=== PATIENT | female | born 2000 | race Two or more races ===

== ENCOUNTER 2023-04-25 16:01 | Emergency (ER) | payer MEDICAID ==
[2023-04-25 17:36] LABS: APPEARANCE,URINE TURBID (CLEAR); BILIRUBIN,URINE NEGATIVE (NEGATIVE); COLOR,URINE YELLOW (YELLOW); GLUCOSE,URINE NEGATIVE (NEGATIVE); KETONES,URINE NEGATIVE (NEGATIVE); LEUKOCYTE ESTERASE,URINE MODERATE (NEGATIVE); NITRITE,URINE POSITIVE (NEGATIVE); OCCULT BLOOD,URINE TRACE-INTACT (NEGATIVE); PROTEIN,URINE 30 mg/dL (NEGATIVE)
[2023-04-25 17:43] LABS: AMORPHOUS SEDIMENT,URINE FEW; BACTERIA,URINE MANY; EPITHELIAL CELLS,URINE FEW; MUCUS,URINE MANY; RBC,URINE 0-5 (0-5); WBC,URINE PACKED (0-5)
[2023-04-28 16:17] LABS: CHLAMYDIA TRACHOMATIS, NAA Positive (Negative); NEISSERIA GONORRHOEAE, NAA Positive (Negative)
== END 2023-04-25 18:14 | disposition home or self-care (01) ==
LOC: JP.ED 16:01
DX: N30.01 Acute cystitis with hematuria (principal)
CPT/HCPCS: 81001; 87491; 87591; 99283

== ENCOUNTER 2023-04-29 19:29 | Emergency (ER) | payer MEDICAID | END 2023-04-29 20:05 | disposition left against medical advice (07) | LOC: JP.ED 19:29 | DX: Z53.21 Procedure and treatment not carried out due to patient leaving prior to being seen by health care provider (principal) ==